=== PATIENT | male | born 1965 | race Caucasian/White ===

== ENCOUNTER 2023-12-23 14:48 | Outpatient (CLI) | payer OTHER, SELFPAY ==
--- NOTE | 2023-12-23 | CRLHL7_ITS ---
For Patients: As a result of the Century Cures Act, medical imaging exams and procedure reports are released immediately into your electronic medical record. You may view this report before your referring provider. If you have questions, please contact your health care provider. INDICATION: Persistent COUGH TECHNIQUE: Chest 2 views COMPARISON: 11/23/2020 FINDINGS: Cardiovascular and mediastinum: Heart size and vasculature are normal in caliber and appearance. Lungs and pleural spaces: Lungs are clear. No sign of infiltrate or mass. No sign of pleural effusion. No pneumothorax. Bones and soft tissues: No significant findings. IMPRESSION: Clear lungs. Dictated by Yong Virk MD @ 12/24/2023 11:31:27 AM (Electronically Signed)
== END 2023-12-23 14:49 | disposition home or self-care (01) ==
PROVIDERS: PCP Family Medicine; Visit Provider Family Medicine
DX: R05.9 Cough, unspecified (principal)
CPT/HCPCS: 71046

== ENCOUNTER 2024-11-08 08:15 | Outpatient (CLI) | payer OTHER, SELFPAY ==
--- NOTE | 2024-11-08 08:58 | W.ANESCHARGE ---
Anesthesia Charges Start Date/Time Anesthesia Start Date: 11/08/24 Anesthesia Start Time: 08:32 Stop Date/Time Anesthesia Stop Date: 11/08/24 Anesthesia Stop Time: 08:55
== END 2024-11-08 08:16 | disposition home or self-care (01) ==
LOC: OP CLINIC 08:15
PROVIDERS: Visit Provider Internal Medicine
DX: Z12.11 Encounter for screening for malignant neoplasm of colon (principal); D12.0 Benign neoplasm of cecum; D12.3 Benign neoplasm of transverse colon; K57.30 Diverticulosis of large intestine without perforation or abscess without bleeding
CPT/HCPCS: 00811; 45380; 45385; 88305; J2704

== ENCOUNTER 2025-01-10 13:50 | Outpatient (CLI) | payer OTHER, SELFPAY | END 2025-01-10 13:51 | disposition home or self-care (01) | PROVIDERS: PCP Family Medicine; Visit Provider Family Medicine | DX: E78.2 Mixed hyperlipidemia (principal); R53.83 Other fatigue; Z12.5 Encounter for screening for malignant neoplasm of prostate; E55.9 Vitamin D deficiency, unspecified; B35.1 Tinea unguium | CPT/HCPCS: 80048; 80061; 84403; 84460; 85025; G0103 ==